=== PATIENT | female | born 1975 | race African-American/Black ===

== ENCOUNTER 2017-04-05 20:35 | Emergency (ER) | payer BC ==
[~2017-04-05] VITALS: Ht 167.6 cm; Wt 117.0 kg
[~2017-04-05 20:35] MED LIST: NOHOMEMEDICATIONS
[2017-04-05] MEDS ORDERED: LISINOPRIL-HCT1 EAC2 PO (20:42)
[2017-04-05] MEDS ORDERED: NAPROSYN500 MG PO (22:29)
[2017-04-05] MEDS ORDERED: ULTRAM 50MG TAB50 MG PO (22:53)
[2017-04-05 22:58] VITALS: BP 146/87
== END 2017-04-05 22:55 | disposition home or self-care (01) ==
LOC: ER 20:35
DX: S20.219A Contusion of unspecified front wall of thorax, initial encounter (principal); I10 Essential (primary) hypertension; V49.9XXA Car occupant (driver) (passenger) injured in unspecified traffic accident, initial encounter; Y92.89 Other specified places as the place of occurrence of the external cause; Y93.89 Activity, other specified; Y99.8 Other external cause status